=== PATIENT | female | born 2000 | race African-American/Black ===

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

== ENCOUNTER 2019-07-10 10:23 | Emergency (ER) | payer MEDICAID ==
[~2019-07-10] VITALS: Ht 157.5 cm; Wt 77.0 kg
[2019-07-10 11:01] VITALS: BP 133/85
[2019-07-10] MEDS ORDERED: HYDROCODONE/ACETAMINOPHEN 5/325MG TABLET PO ONE (11:15)
== END 2019-07-10 12:36 | disposition home or self-care (01) ==
LOC: ER 10:23
DX: S69.82XA Other specified injuries of left wrist, hand and finger(s), initial encounter (principal); W01.0XXA Fall on same level from slipping, tripping and stumbling without subsequent striking against object, initial encounter; Y93.89 Activity, other specified; Y92.018 Other place in single-family (private) house as the place of occurrence of the external cause
CPT/HCPCS: 29125; 73110; 73140; 81025; 99283